=== PATIENT | male | born 1985 | race Two or more races ===

== ENCOUNTER 2019-01-16 21:34 | Emergency (ER) | payer BC, OTHER ==
[~2019-01-16] VITALS: Ht 177.8 cm; Wt 72.6 kg
== END 2019-01-16 22:38 | disposition home or self-care (01) ==
LOC: ER 21:34
DX: S01.02XA Laceration with foreign body of scalp, initial encounter (principal); W45.8XXA Other foreign body or object entering through skin, initial encounter; Y93.89 Activity, other specified; Y92.89 Other specified places as the place of occurrence of the external cause; Y99.8 Other external cause status